=== PATIENT | female | born 1950 | race Hispanic/Latino ===

== ENCOUNTER 2024-06-06 13:07 | Observation (INO) | payer MEDICARE ==
[~2024-06-06] VITALS: Ht 160 cm; Wt 50.9 kg
[2024-06-06] MEDS ORDERED: PREDNISONE20 MG PO (14:01)
[2024-06-06] MEDS ORDERED: ATIVAN0.5 MG PO (14:01)
[2024-06-06] MEDS: TETRACAINE HCL 0.5% OPTH SOLN 4 ML BTL OP ONE (14:03)
[2024-06-06] MEDS ORDERED: SODIUM CHLORIDE 0.9% 1000ML 1,000 ML IV SCH (15:00)
[2024-06-06] MEDS: SODIUM CHLORIDE 0.9% 1000ML 1,000 ML IV SCH (15:20)
[2024-06-06 19:16] VITALS: PULSE 75; RESP 14; TEMP 98.3
[2024-06-06] MEDS ORDERED: ATORVASTATIN CA20 MG PO (22:33)
[2024-06-06] MEDS ORDERED: ALENDRONATE SOD35 MG PO (22:33)
[2024-06-06 22:49] VITALS: BP 110/57; PULSE 76; RESP 16; TEMP 98.3; O2SAT 99
[2024-06-06 23:05] VITALS: BP 125/67; PULSE 75; RESP 18; TEMP 98.4; O2SAT 98
[2024-06-06 23:06] VITALS: BP 125/67; PULSE 75; RESP 18; TEMP 98.4; O2SAT 98
[2024-06-07] VITALS (7 sets, daily range): BP systolic 111–131; BP diastolic 63–74; PULSE 68–81; RESP 16–18; TEMP 98.3–98.9; O2SAT 97–98
[2024-06-07 05:18] LABS: BASOPHILS % 0.2 % (0.0-1.0); EOSINOPHILS # (AUTO) 0.1 (0.0-0.4); EOSINOPHILS % 1.7 % (0.0-6.0); HEMATOCRIT 38.1 % (34.2-44.1); HEMOGLOBIN 11.9 g/dL (12.0-16.0); LYMPHOCYTES # (AUTO) 0.9 (1.0-3.2); LYMPHOCYTES % 21.8 % (18.0-39.1); MEAN CORPUSCULAR HEMOGLOBIN 29.9 pg (28-32); MEAN CORPUSCULAR HGB CONC 31.2 g/dL (31-35); MEAN CORPUSCULAR VOLUME 95.7 fL (81-99); MONOCYTES # (AUTO) 0.4 (0.2-0.8); MONOCYTES % 8.8 % (4.4-11.3); NEUTROPHILS # (AUTO) 2.8 (2.1-6.9); NEUTROPHILS % 67.3 % (38.7-80.0); PLATELET COUNT 239 x10e3/uL (140-360); RED BLOOD COUNT 3.98 x10e6/uL (3.6-5.1); RED CELL DISTRIBUTION WIDTH 13.2 % (11.7-14.4); WHITE BLOOD COUNT 4.09 x10e3/uL (4.8-10.8)
[2024-06-07 05:27] LABS: CREATINE KINASE 29 IU/L (29-168)
[2024-06-07 05:40] LABS: TROPONIN I < 0.001 ng/mL (0-0.300)
[2024-06-07 06:20] LABS: ANION GAP 11.7 mmol/L (8-16); CALCIUM 8.8 mg/dL (8.4-10.2); CREATININE, SERUM 0.58 mg/dL (0.57-1.11); MAGNESIUM 1.8 MG/DL (1.3-2.1); PHOSPHORUS 3.5 MG/DL (2.3-4.7); POTASSIUM 3.7 mmol/L (3.5-5.1)
[2024-06-07] MEDS: LORAZEPAM 0.5 MG TAB PO SCH (10:53)
[2024-06-07 14:54] LABS: CREATINE KINASE 30 IU/L (29-168)
[2024-06-07 17:19] LABS: TROPONIN I < 0.001 ng/mL (0-0.300)
[2024-06-07] MEDS: LORAZEPAM 0.5 MG TAB PO PRN (20:07)
[2024-06-07] MEDS: ATORVASTATIN 20 MG TAB PO SCH (20:07)
[2024-06-08 05:33] VITALS: BP 130/70; PULSE 67; RESP 18; TEMP 97.9; O2SAT 97
[2024-06-08 06:11] LABS: TROPONIN I 0.006 ng/mL (0-0.300)
[2024-06-08 08:00] VITALS: BP 127/82; PULSE 78; RESP 18; TEMP 98.2; O2SAT 97
[2024-06-08 11:14] VITALS: BP 127/82; PULSE 78; RESP 18; TEMP 98.2; O2SAT 97
[2024-06-08 12:33] VITALS: BP 126/64; PULSE 69; RESP 17; TEMP 98.2; O2SAT 99
== END 2024-06-08 14:11 | disposition home or self-care (01) ==
LOC: FSED 13:14 → ERHOLD 14:49 → MED/SURG 21:22
PROVIDERS: ADMIT Internal Medicine; ATTEND Internal Medicine
DX: G44.52 New daily persistent headache (NDPH) (principal); T38.0X5A Adverse effect of glucocorticoids and synthetic analogues, initial encounter; H57.12 Ocular pain, left eye; H53.8 Other visual disturbances; G25.1 Drug-induced tremor; R00.0 Tachycardia, unspecified; D64.9 Anemia, unspecified; F41.9 Anxiety disorder, unspecified; E78.5 Hyperlipidemia, unspecified; R94.31 Abnormal electrocardiogram [ECG] [EKG]; Y92.009 Unspecified place in unspecified non-institutional (private) residence as the place of occurrence of the external cause; Z79.899 Other long term (current) drug therapy; Z79.52 Long term (current) use of systemic steroids
CPT/HCPCS: 36415; 70450; 70551; 80048; 80053; 81003; 82550 ×2; 82553; 83735; 84100; 84484 ×3; 85025 ×2; 93005; 96360; 99284; G0378 ×3; J7030 ×3